=== PATIENT | female | born 1980 | race Hispanic/Latino ===

== ENCOUNTER 2023-10-18 09:48 | Emergency (ER) | payer OTHER ==
[2023-10-18] MEDS ORDERED: HYDROcodone/Acetaminophen 10/325 mg Tablet ONE (11:28)
== END 2023-10-18 11:44 | disposition home or self-care (01) ==
LOC: ERS 09:48
DX: S62.303A Unspecified fracture of third metacarpal bone, left hand, initial encounter for closed fracture (principal); I10 Essential (primary) hypertension; Z79.899 Other long term (current) drug therapy; W10.9XXA Fall (on) (from) unspecified stairs and steps, initial encounter
CPT/HCPCS: 29125